=== PATIENT | female | born 1980 | race Caucasian/White ===

== ENCOUNTER → 2023-06-13 16:57 | Outpatient (BNVA) | payer MEDICAID, SELFPAY | PROVIDERS: PCP Nurse Practitioner Family; Visit Provider Nurse Practitioner Family | DX: A69.20 Lyme disease, unspecified (principal); R53.83 Other fatigue; N95.9 Unspecified menopausal and perimenopausal disorder; E78.5 Hyperlipidemia, unspecified; I10 Essential (primary) hypertension | CPT/HCPCS: 80053; 80061; 82672; 84403; 84439; 84443; 85025; 86003; 86008 ==

== ENCOUNTER → 2023-08-25 11:37 | Outpatient (BNVA) | payer MEDICAID, SELFPAY | PROVIDERS: PCP Nurse Practitioner Family; Visit Provider Nurse Practitioner Family | DX: Z12.4 Encounter for screening for malignant neoplasm of cervix (principal) | CPT/HCPCS: 87070; 87205; 88175 ==